=== PATIENT | male | born 1960 | race Two or more races ===

== ENCOUNTER 2017-09-26 16:02 | Emergency (ER) | payer OTHER ==
[~2017-09-26] VITALS: Ht 157.5 cm; Wt 54.4 kg
[~2017-09-26 16:02] MED LIST: Folic Acid PO; HYDR-3895 PO; MULT-24 PO; THIA100T13 PO
--- NOTE | 2017-09-26 16:20 | NUR ---
pt at bedside. pt restless, non-verbal at this time
--- NOTE | 2017-09-26 16:28 | NUR ---
[facility] at bedside per pt request.
[2017-09-26] MEDS ORDERED: IV NS 1000 ML 1,000 ML IV ONE (16:45)
[2017-09-26] MEDS ORDERED: ONDANSETRON IV *ER 4 MG/2 ML VIAL IV ONE (16:45)
[2017-09-26] MEDS ORDERED: PANTOPRAZOLE SODIUM IV 40 MG in IV DEXTROSE 5% 100 ML IV ONE (16:45)
[2017-09-26] MEDS ORDERED: LORAZEPAM 2 MG/1 ML VIAL IV ONE (16:57)
[2017-09-26 16:59] LABS: BASOPHILS % (AUTO) 0.4 % (0.0-2.0); EOSINOPHILS % (AUTO) 0.1 % (0.0-7.0); HEMATOCRIT 46.9 % (40-50); HEMOGLOBIN 15.5 G/DL (14.0-18.0); LYMPHOCYTES # (AUTO) 1.4 K/UL (0.8-4.8); LYMPHOCYTES % (AUTO) 11.3 % (20.5-51.5); MEAN CORPUSCULAR HEMOGLOBIN 30.4 UUG (27.0-31.0); MEAN CORPUSCULAR HGB CONC 33 g/dL (32.0-37.0); MEAN CORPUSCULAR VOLUME 91.9 FL (82.0-92.0); MONOCYTES # (AUTO) 0.4 K/UL (0.1-1.30); MONOCYTES % (AUTO) 3.5 % (0.0-11.0); NEUTROPHILS # (AUTO) 10.4 K/UL (1.8-8.9); NEUTROPHILS % (AUTO) 84.7 % (38.5-71.5); PLATELET COUNT (AUTO) 437 K/UL (150-450); WHITE BLOOD COUNT (AUTO) 12.2 K/UL (4.0-11.2)
[2017-09-26] MEDS ORDERED: ONDANSETRON 4 MG/2 ML VIAL ONE (17:04)
[2017-09-26 17:05] LABS: CREATININE 2.4 mg/dL (0.6-1.3); POTASSIUM 3.5 mmol/L (3.5-5.1)
[2017-09-26] MEDS ORDERED: PANTOPRAZOLE SODIUM 40 MG VIAL ONE (17:05)
[2017-09-26] MEDS ORDERED: LORAZEPAM 2 MG/1 ML VIAL ONE (17:13)
[2017-09-26 17:15] LABS: ETHANOL < 3 MG/DL (0-0)
[2017-09-26 17:17] LABS: BILIRUBIN,TOTAL 0.2 mg/dL (0.2-1.0); TOTAL PROTEIN, SERUM 6.9 g/dL (6.4-8.2)
[2017-09-26 17:30] LABS: *BILIRUBIN,URIN NEGATIVE (NEGATIVE); *BLOOD, URINE 1+ (NEGATIVE); *CLARITY,URINE CLEAR (CLEAR); *COLOR,URINE YELLOW (YELLOW); *KETONES,URINE NEGATIVE (NEGATIVE); *PROTEIN,URINE 2+ (NEGATIVE); *UROBILINOGEN,URINE 0.2 E.U./dl (NORMAL); LEUKOCYTE ESTERASE ,URINE NEGATIVE (NEGATIVE); NITRITE, URINE NEGATIVE (NEGATIVE); UGLUCOSE NEGATIVE (NEGATIVE)
--- NOTE | 2017-09-26 18:00 | NUR ---
pt resting, arousable still unable to answer the questions.
[2017-09-26 18:01] LABS: BACTERIA,URINE NONE SEEN /HPF (NONE SEEN); MUCUS,URINE MANY /LPF (0-FEW); SQUAMOUS EPITHELIAL CELL,UR FEW /HPF (NONE SEEN); WBC,URINE 0-3 /HPF (0-3)
[2017-09-26 18:05] LABS: *AMPHETAMINE, URINE NEGATIVE (NEGATIVE); *BARBITURATE, URINE NEGATIVE (NEGATIVE); *CANNABINOID, URINE NEGATIVE (NEGATIVE); *COCCAINE, URINE NEGATIVE (NEGATIVE); *OPIATE, URINE NEGATIVE (NEGATIVE); *PHENCYCLIDINE SCREEN,URINE NEGATIVE (NEGATIVE)
--- NOTE | 2017-09-26 19:50 | NUR ---
[facility] INTAKE INTO SPEAK WITH PATIENT AND EX ABOUT ADMISSION TO [facility]. PATIENT IS A/OX4 AT THIS TIME AND REFUSES TO BE ADMITTED TO [facility] DETOX. DR TAPIA AWARE
--- NOTE | 2017-09-26 20:00 | NUR ---
DR Amaya into re eval patient
--- NOTE | 2017-09-26 20:27 | NUR ---
IV removed. Catheter intact and site benign. Pressure and 4x4 gauze applied to site. No bleeding noted.
--- NOTE | 2017-09-26 20:32 | NUR ---
Patient discharged to home in stable conditon with ex taking patient home. Written and verbal after care instructions given. Patient verbalizes understanding of instructions. Walked out of ER with steady gait
[2017-09-26 20:33] VITALS: BP 101/50
== END 2017-09-26 20:34 | disposition home or self-care (01) ==
LOC: ER 16:03
DX: R41.82 Altered mental status, unspecified (principal); F10.10 Alcohol abuse, uncomplicated; N28.9 Disorder of kidney and ureter, unspecified
CPT/HCPCS: 36415; 70030-TC; 70450; 71010; 80307; 85025; 93005; A4663; C9113; G0480; J2060; J2405; J7040

== ENCOUNTER 2018-07-14 03:18 | Emergency (ER) | payer OTHER ==
[~2018-07-14] VITALS: Ht 170.2 cm; Wt 61.2 kg
[2018-07-14 04:20] LABS: BASOPHILS % (AUTO) 0.4 % (0.0-2.0); EOSINOPHILS # (AUTO) 0.1 K/uL (0.0-0.7); EOSINOPHILS % (AUTO) 1.4 % (0.0-7.0); HEMATOCRIT 45.9 % (36.7-47.1); HEMOGLOBIN 15.4 g/dL (12.5-16.3); LYMPHOCYTES # (AUTO) 1.6 K/uL (20.0-40.0); LYMPHOCYTES % (AUTO) 26.5 % (20.5-51.5); MEAN CORPUSCULAR HEMOGLOBIN 30.2 uug (23.8-33.4); MEAN CORPUSCULAR HGB CONC 34 g/dL (32.5-36.3); MEAN CORPUSCULAR VOLUME 89.6 fL (73.0-96.2); MONOCYTES # (AUTO) 0.6 K/uL (2.0-10.0); MONOCYTES % (AUTO) 9.6 % (0.0-11.0); NEUTROPHILS # (AUTO) 3.6 K/uL (1.8-8.9); NEUTROPHILS % (AUTO) 62.1 % (38.5-71.5); PLATELET COUNT (AUTO) 161 K/uL (152-348); RED BLOOD CELL COUNT(AUTO) 5.12 MIL/uL (4.06-5.63); WHITE BLOOD COUNT (AUTO) 5.9 K/uL (3.6-10.2)
[2018-07-14 04:24] LABS: CARBON DIOXIDE 22 mmol/L (21-32); CHLORIDE 95 mmol/L (98-107); CREATININE 0.7 mg/dL (0.6-1.3); GLUCOSE 174 mg/dL (74-106); POTASSIUM 3.6 mmol/L (3.5-5.1); UREA NITROGEN, BLOOD 10 mg/dL (7-18)
[2018-07-14 04:27] LABS: ETHANOL 454 MG/DL (0-0)
[2018-07-14 04:30] LABS: ALANINE AMINOTRANSFERASE 46 U/L (16-63); ALKALINE PHOSPHATASE 78 U/L (50-136); ASPARTATE AMINOTRANSFERASE 72 U/L (15-37); BILIRUBIN,DIRECT 0.1 mg/dL (0.0-0.2); BILIRUBIN,TOTAL 0.4 mg/dL (0.2-1.0); TOTAL PROTEIN, SERUM 7.4 g/dL (6.4-8.2)
[2018-07-14 04:33] LABS: ACETAMINOPHEN < 2.0 ug/mL (10-30)
[2018-07-14 04:38] LABS: THYROID STIMULATING HORMONE 0.836 mIU/mL (0.358-3.740)
--- NOTE | 2018-07-14 07:30 | NUR ---
MSE COMPLETED, PT'S EX- ARRIVED FOR PT TRANSPORT. PT AMBUL;ATED W/O DIFF/TOOK ASLL BELONGINGS.
[2018-07-14 07:51] VITALS: BP 110/64
== END 2018-07-14 07:30 | disposition home or self-care (01) ==
LOC: ER 03:22
DX: F10.129 Alcohol abuse with intoxication, unspecified (principal)
CPT/HCPCS: 36415; 70450; 71045; 72125; 80048; 80076; 82140; 83605; 84443; 84484; 85025; 85730; 87040 ×2; 93005; 99285; A4663; G0480 ×2; G0481; 70030-TC

== ENCOUNTER 2018-12-03 03:28 | Emergency (ER) | payer OTHER ==
[~2018-12-03] VITALS: Ht 165.1 cm; Wt 68.0 kg
--- NOTE | 2018-12-03 03:49 | NUR ---
Patient BIB [id number] from home c/o ETOH intoxication. Per EMS report, patient's ex- continually checks on patient due to his alcohol dependance and the patient was found to be intoxicated to the point of not verbally responding and she called 911. Patient A/O x3, ambulatory with an unsteady gait, slurring words, calm and cooperative at this time. To room 3A, CANDICE perfomed MARLINE.
--- NOTE | 2018-12-03 04:36 | NUR ---
Patient's ex- called requesting information about the patient's status. Permission obtained from patient, discussed patient's condition and approximate timeframe for patient to be discharged. She stated that she did not want to pick up man the patient until he was no longer intoxicated.
--- NOTE | 2018-12-03 04:45 | NUR ---
Patient is resting comfortably in bed with eyes closed
--- NOTE | 2018-12-03 06:05 | NUR ---
Patient is resting comfortably in bed with eyes closed
--- NOTE | 2018-12-03 07:01 | NUR ---
Patient is resting comfortably in bed with eyes closed
--- NOTE | 2018-12-03 07:10 | NUR ---
Recieved pt in bed, resting comfortably w/ both eyes closed, NAD noted.
--- NOTE | 2018-12-03 07:47 | NUR ---
PT is awake and verbally responsive, breakfast and extra fluids provided.
--- NOTE | 2018-12-03 08:23 | NUR ---
Pt is awake A/O, pt states he is not homeless. Pt walked w/ steady gait.
--- NOTE | 2018-12-03 08:36 | NUR ---
Patient discharged to home in stable conditon. Written and verbal after care instructions given. Patient verbalizes understanding of instructions. Pt left ER w/ steady gait.
[2018-12-03 08:37] VITALS: BP 110/71
== END 2018-12-03 08:38 | disposition home or self-care (01) ==
LOC: ER 03:32
DX: F10.129 Alcohol abuse with intoxication, unspecified (principal); Z79.899 Other long term (current) drug therapy; Y90.8 Blood alcohol level of 240 mg/100 ml or more
CPT/HCPCS: 36415; 99283; G0480; A4663

== ENCOUNTER 2019-01-16 03:10 | Inpatient (IN) | payer OTHER ==
[~2019-01-16] VITALS: Ht 165.1 cm; Wt 53.5 kg
[2019-01-16] VITALS (8 sets, daily range): BP systolic 85–111; BP diastolic 55–65
--- NOTE | 2019-01-16 03:15 | NUR ---
Dr. Mack at bedside for MSE.
--- NOTE | 2019-01-16 03:18 | NUR ---
[employer] at bedside, interviewing patient.
--- NOTE | 2019-01-16 03:30 | NUR ---
Received call from patient's ex-, states patient has been drinking constantly for 2 months, barely eating, and she is concerned for his health, requesting bloodwork for patient so that maybe if he sees the result he will follow. Ex left her name and number, Alanis Thrasher . notified.
[2019-01-16] MEDS ORDERED: LORAZEPAM 2 MG/1 ML VIAL ONE (03:43)
[2019-01-16] MEDS ORDERED: LORAZEPAM 2 MG/1 ML VIAL IV ONE (03:45)
[2019-01-16] MEDS ORDERED: IV NORMAL SALINE 1000 ML BAG IV ONE ×2 (03:45→06:00)
[2019-01-16 04:00] LABS: BASOPHILS # (AUTO) 0.1 K/uL (0.0-8.0); BASOPHILS % (AUTO) 1.6 % (0.0-2.0); EOSINOPHILS % (AUTO) 0.6 % (0.0-7.0); HEMATOCRIT 34.6 % (36.7-47.1); HEMOGLOBIN 11.9 g/dL (12.5-16.3); LYMPHOCYTES # (AUTO) 1.9 K/uL (20.0-40.0); LYMPHOCYTES % (AUTO) 42.5 % (20.5-51.5); MEAN CORPUSCULAR HEMOGLOBIN 31.8 uug (23.8-33.4); MEAN CORPUSCULAR HGB CONC 35 g/dL (32.5-36.3); MEAN CORPUSCULAR VOLUME 92.3 fL (73.0-96.2); MONOCYTES # (AUTO) 0.6 K/uL (2.0-10.0); MONOCYTES % (AUTO) 13.5 % (0.0-11.0); NEUTROPHILS # (AUTO) 1.9 K/uL (1.8-8.9); NEUTROPHILS % (AUTO) 41.8 % (38.5-71.5); PLATELET COUNT (AUTO) 112 K/uL (152-348); RED BLOOD CELL COUNT(AUTO) 3.75 MIL/uL (4.06-5.63); WHITE BLOOD COUNT (AUTO) 4.5 K/uL (3.6-10.2)
[2019-01-16 04:14] LABS: CREATININE 0.8 mg/dL (0.6-1.3); POTASSIUM 3.8 mmol/L (3.5-5.1)
[2019-01-16 04:21] LABS: BILIRUBIN,DIRECT 0.3 mg/dL (0.0-0.2); BILIRUBIN,TOTAL 0.6 mg/dL (0.2-1.0); TOTAL PROTEIN, SERUM 6.6 g/dL (6.4-8.2)
[2019-01-16 04:47] LABS: LYMPHOCYTES % (MANUAL) 22 % (20-40); MONOCYTES % (MANUAL) 9 % (2-10); NEUTROPHILS % (MANUAL) 64 % (42-75)
[2019-01-16] MEDS ORDERED: PANTOPRAZOLE SODIUM 40 MG VIAL IV ONE (05:30)
[2019-01-16] MEDS ORDERED: ONDANSETRON IV *ER 4 MG/2 ML VIAL IV ONE (05:30)
[2019-01-16] MEDS ORDERED: PANTOPRAZOLE SODIUM 40 MG VIAL ONE (05:32)
[2019-01-16] MEDS ORDERED: ONDANSETRON 4 MG/2 ML VIAL ONE (05:37)
--- NOTE | 2019-01-16 05:53 | NUR ---
Dr. Mack on panel call with Dr. Dayton Lopez. Patient accepted for admission to [facility], diagnosis Pacreatitis.
--- NOTE | 2019-01-16 05:59 | NUR ---
Report given to Karlee BRUCE Tele.
[2019-01-16] MEDS ORDERED: INSULIN REGULAR, HUMAN 300 UNIT/3 ML VIAL SQ PRN (06:00)
[2019-01-16] MEDS ORDERED: HYDROCODONE/APAP 5-325MG TABLET PO PRN (06:00)
[2019-01-16] MEDS ORDERED: Z GUARD REMEDY PASTE 57 GM TUBE TOP PRN (06:00)
[2019-01-16] MEDS ORDERED: MAGNESIUM HYDROXIDE 30 ML LIQUID UDC PO PRN (06:00)
[2019-01-16] MEDS ORDERED: ONDANSETRON 4 MG/2 ML VIAL IV PRN (06:00)
[2019-01-16] MEDS ORDERED: ACETAMINOPHEN 325 MG TABLET PO PRN (06:00)
[2019-01-16] MEDS ORDERED: HYDROMORPHONE 1 MG/1 ML DISP.SYRIN IV PRN ×2 (06:00→08:00)
[2019-01-16] MEDS ORDERED: DEXTROSE 50% 50 ML DISP.SYRIN IV PRN ×2 (06:00→20:00)
--- NOTE | 2019-01-16 07:20 | NUR ---
PT IS SLEEPING WELL, EASILY AWOKEN, BUT VERY QUICKLY GOES BACK TO SLEEP, HAS NOT SPOKEN YET, ANSWERS SIMPLE QUESTIONS WITH A NOD. ALL NEEDS MET, SAFETY MEASURES ARE IN PLACE, CALL LIGHT WITHIN REACH, BED ALARM IS ON. PLAN OF CARE REPORTED TO CHAIM BRUCE
--- NOTE | 2019-01-16 07:49 | NUR ---
PATIENT RECEIVED SLEEPING IN BED, NO DISTRESS NOTED, BED IN LOW POSITION, SIDE RAILS UP X3, CALL LIGHT WITHIN REACH.
[2019-01-16] MEDS: BLOOD SUGAR DIAGNOSTIC 1 EACH STRIP VI SCH ×4 (08:18→20:45)
--- NOTE | 2019-01-16 08:30 | NUR ---
PATIENT REMAINS INTERMITTENTLY SLEEPING. NO DISTRESS NOTED UNABLE TO OBTAIN HISTORY, LETHARGIC, BUT AROUSABLE.
[2019-01-16] MEDS: IV LACTATED RINGERS SOLUTION 1,000 ML IV PRN ×3 (08:54→23:54)
[2019-01-16] MEDS: PANTOPRAZOLE SODIUM 40 MG VIAL IV SCH (09:29)
[2019-01-16] MEDS: LORAZEPAM 2 MG/1 ML VIAL IV PRN ×3 (11:01→21:42)
[2019-01-16] MEDS: FOLIC ACID 1 MG TABLET PO SCH (11:09)
[2019-01-16] MEDS: MULTIVITAMINS,THERAPEUTIC TABLET PO SCH (11:09)
--- NOTE | 2019-01-16 11:42 | NUR ---
patient to continues to sleep intermittently, patient verbalized having some tremors, Provided Ativan IV per orders for ETOH management, unable to obtain history for admission patient continues lethargic but arousable. continue to monitor
[2019-01-16] MEDS ORDERED: THIAMINE HCL INJ 100 MG in IV DEXTROSE 5% 50 ML IV ONE (12:00)
[2019-01-16] MEDS: NICOTINE 14 MG/24HR PATCH TD SCH (18:27)
[2019-01-17 06:06] LABS: BASOPHILS # (AUTO) 0.1 K/uL (0.0-8.0); BASOPHILS % (AUTO) 0.9 % (0.0-2.0); EOSINOPHILS % (AUTO) 0.7 % (0.0-7.0); HEMATOCRIT 34.6 % (36.7-47.1); HEMOGLOBIN 11.9 g/dL (12.5-16.3); LYMPHOCYTES # (AUTO) 1.8 K/uL (20.0-40.0); LYMPHOCYTES % (AUTO) 23.6 % (20.5-51.5); MEAN CORPUSCULAR HEMOGLOBIN 31.9 uug (23.8-33.4); MEAN CORPUSCULAR HGB CONC 34 g/dL (32.5-36.3); MEAN CORPUSCULAR VOLUME 93.1 fL (73.0-96.2); MONOCYTES # (AUTO) 0.6 K/uL (2.0-10.0); MONOCYTES % (AUTO) 7.7 % (0.0-11.0); NEUTROPHILS # (AUTO) 5.1 K/uL (1.8-8.9); NEUTROPHILS % (AUTO) 67.1 % (38.5-71.5); PLATELET COUNT (AUTO) 96 K/uL (152-348); RED BLOOD CELL COUNT(AUTO) 3.72 MIL/uL (4.06-5.63); WHITE BLOOD COUNT (AUTO) 7.6 K/uL (3.6-10.2)
[2019-01-17 06:29] LABS: THYROID STIMULATING HORMONE 6.112 mIU/mL (0.358-3.740)
[2019-01-17 06:31] LABS: BILIRUBIN,TOTAL 1.1 mg/dL (0.2-1.0); CREATININE 0.7 mg/dL (0.6-1.3); MAGNESIUM 1.7 mg/dL (1.8-2.4); PHOSPHOROUS 2.8 mg/dL (2.5-4.9); POTASSIUM 3.7 mmol/L (3.5-5.1); TOTAL PROTEIN, SERUM 6.4 g/dL (6.4-8.2)
[2019-01-17 06:47] VITALS: BP 120/62
[2019-01-17] MEDS: BLOOD SUGAR DIAGNOSTIC 1 EACH STRIP VI SCH ×4 (06:49→20:38)
[2019-01-17] MEDS: PANTOPRAZOLE SODIUM 40 MG VIAL IV SCH (08:09)
[2019-01-17] MEDS: LORAZEPAM 2 MG/1 ML VIAL IV PRN ×4 (08:09→21:03)
[2019-01-17] MEDS: THIAMINE HCL 100 MG TABLET PO SCH (08:10)
[2019-01-17] MEDS: FOLIC ACID 1 MG TABLET PO SCH (08:10)
[2019-01-17] MEDS: MULTIVITAMINS,THERAPEUTIC TABLET PO SCH (08:10)
[2019-01-17] MEDS: NICOTINE 14 MG/24HR PATCH TD SCH (08:19)
[2019-01-17 11:34] VITALS: BP 116/65
[2019-01-17] MEDS: INSULIN REGULAR, HUMAN 300 UNIT/3 ML VIAL SQ PRN ×2 (12:49→21:07)
[2019-01-17 15:42] VITALS: BP 111/66
[2019-01-17] MEDS: MAGNESIUM SULFATE/D5W 100 ML IV SCH ×2 (15:52→18:28)
[2019-01-17] MEDS: IV LACTATED RINGERS SOLUTION 1,000 ML IV PRN (16:01)
--- NOTE | 2019-01-17 17:22 | NUR ---
PATIENT WITH ACCUCHECK 121MG/DL AC/DINNER, NO COVERAGE WILL BE GIVEN FOR ACCUCHECK, ERROR INSERTED ON ACCUCHECK MACHINE THAT COVERAGE WILL BE PROVIDED. ENTERED IN ERROR.
--- NOTE | 2019-01-17 18:43 | NUR ---
PATIENT FREQUENTLY ATTEMPTING TO GET OUT OF BED WITHOUT ASSISTANCE, FREQUENT REDIRECTION FOR SAFETY NEEDED, PATIENT WITH CALL LIGHT WITHIN REACH, BED IN LOW POSITION, SIDE RAILS UP X2, PATIENT FREQUENTLY ASSISTED WITH TOILETING HOWEVER ATTEMPTS TO DO HIMSELF, EDUCATION PROVIDED. PATIENT IV NOT FUNCTIONING THIS AFTERNOON, RESTARTED AT DIFFERENT SITE PATIENT DIFFICULT TO START IV, VEINS INFILTRATE AND PATIENT LIES ON ARMS CONTINUE TO EDUCATE AND REDIRECT.
[2019-01-17 19:48] VITALS: BP 129/78
[2019-01-18] MEDS: IV LACTATED RINGERS SOLUTION 1,000 ML IV PRN ×2 (02:59→08:18)
--- NOTE | 2019-01-18 04:34 | NUR ---
admitted for ETOH intoxication/pancreatitis. aao x4 OOB to the BR with supervision. voiding well. Had periods of agitation, ativan 2mg IV given as ordered. IVF's infusing well via right hand. No acute distress noted. Will monitor patient. No seizure episodes noted. Fall precautions maintained. VSS. possible d/c to Rehab? kept comfortable. denies any pain nor any discomfort.
[2019-01-18 04:57] VITALS: BP 143/87
[2019-01-18] MEDS: BLOOD SUGAR DIAGNOSTIC 1 EACH STRIP VI SCH ×2 (06:30→12:08)
[2019-01-18 06:54] LABS: BASOPHILS % (AUTO) 0.3 % (0.0-2.0); EOSINOPHILS # (AUTO) 0.1 K/uL (0.0-0.7); EOSINOPHILS % (AUTO) 1.3 % (0.0-7.0); HEMATOCRIT 33.1 % (36.7-47.1); HEMOGLOBIN 11.3 g/dL (12.5-16.3); LYMPHOCYTES % (AUTO) 18.2 % (20.5-51.5); MEAN CORPUSCULAR HGB CONC 34 g/dL (32.5-36.3); MEAN CORPUSCULAR VOLUME 93.4 fL (73.0-96.2); MONOCYTES # (AUTO) 0.6 K/uL (2.0-10.0); NEUTROPHILS # (AUTO) 3.6 K/uL (1.8-8.9); NEUTROPHILS % (AUTO) 68.2 % (38.5-71.5); PLATELET COUNT (AUTO) 80 K/uL (152-348); RED BLOOD CELL COUNT(AUTO) 3.54 MIL/uL (4.06-5.63); WHITE BLOOD COUNT (AUTO) 5.3 K/uL (3.6-10.2)
[2019-01-18] MEDS ORDERED: PANTOPRAZOLE SODIUM 40 MG TABLET.DR PO SCH (07:00)
[2019-01-18 07:02] LABS: CARBON DIOXIDE 28 mmol/L (21-32); CHLORIDE 99 mmol/L (98-107); CREATININE 0.5 mg/dL (0.6-1.3); GLUCOSE 87 mg/dL (74-106); MAGNESIUM 2.1 mg/dL (1.8-2.4); POTASSIUM 2.9 mmol/L (3.5-5.1); UREA NITROGEN, BLOOD 4 mg/dL (7-18)
[2019-01-18] MEDS: MULTIVITAMINS,THERAPEUTIC TABLET PO SCH (09:26)
[2019-01-18] MEDS: THIAMINE HCL 100 MG TABLET PO SCH (09:26)
[2019-01-18] MEDS: FOLIC ACID 1 MG TABLET PO SCH (09:26)
[2019-01-18] MEDS ORDERED: POTASSIUM CHLORIDE 20 MEQ TAB.PRT.SR PO ONE (10:00)
[2019-01-18] MEDS: NICOTINE 14 MG/24HR PATCH TD SCH (10:45)
[2019-01-18 11:19] VITALS: BP 126/75
[2019-01-18] MEDS ORDERED: MULT-24 PO (11:58)
[2019-01-18] MEDS ORDERED: FOLI1TAB16 PO (11:58)
[2019-01-18] MEDS ORDERED: THIA100T13 PO (11:58)
[2019-01-18] MEDS: INSULIN REGULAR, HUMAN 300 UNIT/3 ML VIAL SQ PRN (12:10)
--- NOTE | 2019-01-18 12:18 | NUR ---
Received patient awake, alert x3. Not in any form of distress. No abdominal pain, nausea or vomiting noted. IV intact on right hand G22 running LRS at 200cc/hr.
--- NOTE | 2019-01-18 15:00 | NUR ---
Discharge to home accompanied by ex- Angelica via private car. Routine discharge care done. Discharge packet and health teachings given to patient. Informed patient that medications were over the counter per Dr Razo. Discussed to patient import signs and symptoms to watch out for and follow up with PCP. Instructed on low fiber and low fat diet
== END 2019-01-18 15:00 | disposition home or self-care (01) | DRG 896 ==
LOC: ER 03:12 → TELE 05:58 → MED 07:00
PROVIDERS: ADMIT Nurse Practitioner Acute Care; ATTEND Nurse Practitioner Acute Care
DX: F10.239 Alcohol dependence with withdrawal, unspecified (principal); K85.20 Alcohol induced acute pancreatitis without necrosis or infection; G93.40 Encephalopathy, unspecified; E87.1 Hypo-osmolality and hyponatremia; F41.9 Anxiety disorder, unspecified; D69.6 Thrombocytopenia, unspecified; D63.8 Anemia in other chronic diseases classified elsewhere; R74.0 Nonspecific elevation of levels of transaminase and lactic acid dehydrogenase [LDH]; T51.0X1A Toxic effect of ethanol, accidental (unintentional), initial encounter; Y90.8 Blood alcohol level of 240 mg/100 ml or more; E87.6 Hypokalemia
CPT/HCPCS: 36415; 83690; 83735; 84100; 84443; 85025; 85610; 93005; 97110; 97116; 97530; A4663; C9113; G0378; G0480; J1815; J2060; J2405; J3411; J3475; J3490; J7030; J7060; J7120